=== PATIENT | female | born 1965 | race Caucasian/White ===

== ENCOUNTER 2018-10-08 07:09 | Day surgery (SDC) | payer BC ==
[2018-10-08] VITALS (24 sets, daily range): BP systolic 119–173; BP diastolic 72–93; PULSE 68–98; RESP 12–27; Ht 154.9 cm; Wt 64.9 kg
[~2018-10-08] VITALS: Ht 154.9 cm; Wt 64.9 kg
[~2018-10-08 07:09] MED LIST: ATOR10TA65 PO; CEFAZOLIN 2 GM/50 ML (PMX) 50 ML IVPB ONE; CHOL100062 PO; FOLI-49 PO; SOD CHLORIDE 0.9% 1,000 ML IV ONE; propanolol ORAL
[2018-10-08] MEDS ORDERED: DESFLURANE 15 MIN ONE (09:33)
[2018-10-08] MEDS ORDERED: ROCURONIUM 50 MG INJ ONE ×2 (09:33→10:36)
[2018-10-08] MEDS ORDERED: GLYCOPYRROLATE 0.4 MG INJ ONE ×2 (09:33→10:36)
[2018-10-08] MEDS ORDERED: MIDAZOLAM 1 MG/ML 2 ML INJ ONE (09:33)
[2018-10-08] MEDS ORDERED: NEOSTIGMINE 3 MG/3 ML SYRINGE ONE ×2 (09:33→10:36)
[2018-10-08] MEDS ORDERED: CEFAZOLIN 1 GM INJ ONE ×2 (09:33→10:36)
[2018-10-08] MEDS ORDERED: FENTAnyl 50 MCG/ML VIAL ONE (09:33)
[2018-10-08] MEDS ORDERED: PROPOFOL 0 ML ONE (09:33)
[2018-10-08] MEDS ORDERED: DEXAMETHASONE 4 MG/ML 5 ML INJ ONE (09:34)
[2018-10-08] MEDS ORDERED: ONDANSETRON 4 MG INJ ONE (09:34)
[2018-10-08] MEDS ORDERED: ROPIVACAINE 0.5 % 30 ML VIAL ONE (09:34)
[2018-10-08] MEDS ORDERED: BUPIVACAINE 0.25% (MPF) 30 ML INJ ONE (10:27)
--- NOTE | 2018-10-08 10:33 | PREAC ---
Date/Time of Note Date/Time of Note DATE: 10/08/18 TIME: 10:32 Anesthesia Eval and Record Evaluation Time Pre-Procedure Interview DATE: 10/08/18 TIME: 10:32 Age 52 Sex female NPO: 8 hrs Preoperative diagnosis symptomatic cholelithiasis Planned procedure lap laura Past Medical History Past Medical History: Includes Cardio: HTN, Dyslipidemia Surgery & Anesthesia Issues No known issue Meds Anticoagulation: No Beta Cindy within 24 hr: Yes Reported Medications Cholecalciferol* (Vitamin D3*) 1,000 Unit Tablet, 2000 UNIT PO DAILY, TAB 10/08/18 Atorvastatin Calcium (Atorvastatin Calcium) 10 Mg Tablet, 10 MG PO QHS, #30 TAB 10/08/18 [propanolol] No Conflict Check, 10 MG ORAL DAILY 10/08/18 Folic Acid* (Folic Acid*) 1 Mg Tablet, 1 MG PO DAILY, TAB 10/08/18 Current Medications Sodium Chloride 1,000 ml @ 75 mls/hr [id number] ONCE IV Last administered on 10/08/18at 08:30; Admin Dose 75 MLS/HR; Start 10/08/18 at 07:00; Stop 10/08/18 at 20:19 Meds reviewed: Yes Allergies Uncoded Allergies: Muscle Relaxers (Allergy, Severe, unable to breathe, 10/08/18) Patient/family unable to recall name of muscle relaxer. Allergies Reviewed: Yes Labs/Studies Labs Reviewed: Reviewed by anesthesiologist test: N/A Studies: ECG (WNL), CXR (NAPD) Pre-procedure Exam Last vitals Vital Signs Date Temp Pulse Resp B/P (MAP) Pulse Ox O2 O2 Flow FiO2 Time Delivery Rate 10/08/18 99.1 82 16 137/82 100 Room Air 09:18 (100) Airway: Adequate mouth opening, Adequate thyromental dist Mallampati: Mallampati II Teeth: Normal Lung: Normal Heart: Normal ASA Physical Status ASA physical status: 2 Emergency: None Planned Anesthetic General/MAC: ETT Nerve block: TAP (bilateral) Planned Pain Management Single shot nerve block, Parenteral pain med Pre-operative Attestations Prior to commencing anesthesia and surgery, the patient was re-evaluated, there was verification of: *The patient's identity *The results of appropriate recent lab work and preoperative vital signs *The above evaluation not changing prior to induction *Anesthetic plan, risk benefits, alternative and complications discussed with patient/family; questions answered; patient/family understands, accepts and wishes to proceed. Gee Schaefer M.D. Oct 08, 2018 10:33
[2018-10-08] MEDS ORDERED: PROPOFOL 20 ML ONE (10:36)
--- NOTE | 2018-10-08 10:44 | HPN ---
Date/Time of Note Date/Time of Note DATE: 10/08/18 TIME: 10:44 Interval H&P Admission Note Pt. seen H&P reviewed: No system changes FAINA BUSH MD Oct 08, 2018 10:44
[2018-10-08] MEDS ORDERED: TRIMETHOBENZAMIDE 100 MG/ML VIAL IM PRN (11:00)
[2018-10-08] MEDS ORDERED: ALBUTEROL 0.083% (NEB) 2.5 MG/3 ML AMP HHN PRN (11:00)
[2018-10-08] MEDS ORDERED: FENTAnyl 50 MCG/ML VIAL IV PRN ×3 (11:00)
[2018-10-08] MEDS ORDERED: MIDAZOLAM 1 MG/ML 2 ML INJ IV PRN (11:00)
[2018-10-08] MEDS ORDERED: LABETALOL HCL 20MG INJ IV PRN (11:00)
[2018-10-08] MEDS ORDERED: IPRATROPIUM (NEB) 0.5 MG/2.5 ML AMP HHN PRN (11:00)
[2018-10-08] MEDS ORDERED: HYDROmorphONE 1 MG/5 ML IV SYRINGE IV PRN ×3 (11:00)
[2018-10-08] MEDS ORDERED: hydrALAzine 20 MG INJ IV PRN (11:00)
[2018-10-08] MEDS ORDERED: EPHEDrine 25 MG/5 ML SYG IV PRN (11:00)
[2018-10-08] MEDS ORDERED: DIPHENHYDRAMINE 50 MG INJ IV PRN (11:00)
[2018-10-08] MEDS ORDERED: MEPERIDINE 25 MG INJ IV PRN (11:00)
[2018-10-08] MEDS ORDERED: ONDANSETRON 4 MG INJ IV PRN ×2 (11:00→12:00)
[2018-10-08] MEDS ORDERED: OXYCODONE/ACETAMINOPHEN (5/325) TAB PO PRN ×2 (11:00)
[2018-10-08] MEDS ORDERED: BUPIVACAINE 0.25% (STERILE-PAK) 30 ML INJ INJ ONE (11:55)
[2018-10-08] MEDS ORDERED: KETOROLAC 30 MG INJ IV PRN (12:00)
[2018-10-08] MEDS ORDERED: HYDROCODONE/APAP (5/325) TAB PO PRN ×2 (12:00)
[2018-10-08] MEDS ORDERED: morphine 2 MG INJ IV PRN (12:00)
[2018-10-08] MEDS ORDERED: IBUPROFEN 600 MG TAB PO PRN (12:00)
[2018-10-08] MEDS ORDERED: SUGAMMADEX SODIUM 200 MG/2 ML VIAL IV ONE (12:02)
--- NOTE | 2018-10-08 12:05 | OPR ---
Date/Time of Note Date/Time of Note DATE: 10/08/18 TIME: 12:00 Operative Report Procedure Date: Oct 08, 2018 Preoperative Diagnosis Cholelithiasis/chronic cholecystitis Postoperative Diagnosis Cholelithiasis/chronic cholecystitis Operation/Procedure Performed Laparoscopic cholecystectomy Surgeon see signature line Fire Alarm Technician None Anesthesia Type: general Anesthesiologist: Gee Schaefer M.D. Estimated Blood Loss: minimal Transfusion none Specimen Gallbladder Grafts/Implants none Complications none Pt Condition Post Procedure: stable Disposition: PACU Indications The patient is a 52-year-old female who presented to the office with complaints of intermittent right upper quadrant abdominal pain. The patient had clinical signs and symptoms of biliary colic and chronic cholecystitis which was confirmed via both an ultrasound and an MRCP that showed the presence of gall stones without any evidence of acute cholecystitis. The patient was scheduled for laparoscopic cholecystectomy; possible open as definitive treatment to prevent further sequelae of gallstone disease which include but are not limited to: Gangrenous cholecystitis, choledocholithiasis, gallstone pancreatitis, ascending cholangitis, etc. All risks and benefits of the procedure including but not limited to: Wound infection, excessive bleeding, common bile duct injury, postoperative biliary leak, retained common bile duct stone, injury to intra-abdominal organs, conversion to open procedure, possible need for subsequent surgeries, etc. were all explained to the patient in full detail. She fully understood and wished to proceed with the procedure. Informed consent was therefore obtained. Procedure Description The patient was brought to the operating room and placed supine on the operating table. Bilateral sequential compression devices were placed on both lower extremities. A dose of broad-spectrum perioperative intravenous antibiotics was given. After the induction of smooth general endotracheal anesthesia the patient 's abdomen was prepped and draped in the standard surgical fashion. A tap block was performed prior to the start of the procedure by the anesthesiologist and will be documented by him separately. After performance of the surgical timeout a 5 mm incision was made in the inferior umbilicus and a Veress needle was used to access the intra-abdominal cavity atraumatically. Pneumoperitoneum was then obtained and the Veress needle was exchanged for a 5 mm trocar through which a 5 mm laparoscope was placed. Three further working ports were then placed a 12 mm port in the sub-xiphoid region and two 5 mm ports in the right upper quadrant. A ll port sites were anesthetized with 0.25% Marcaine with epinephrine prior to incision. Diagnostic laparoscopy showed adhesions in the right lower quadrant. A distended gallbladder was identified in the right upper quadrant. Using atraumatic graspers the gallbladder was grasped and retracted superiorly and laterally exposing the area of Smith's pouch. Dissection was begun in this area using a combination of blunt dissection and hook electrocautery. The cystic duct was identified as it entered straight into the neck of the gallbladder. Cystic duct anatomy was confirmed using fluorescence imaging and indocyanine green dye. It was dissected free of surrounding tissues and clipped proximally and distally x 3 and transected using EndoShears. Dissection was then continued posteriorly. The cystic artery was identified and dissected free of surrounding tissues. It too was clipped proximally and distally x 2 and transected using EndoShears. Critical view was obtained prior to transection of both the cystic duct and artery. The gallbladder was then dissected off the liver bed using electrocautery. Once completely free the gallbladder was placed in an Endo Catch bag and withdrawn through the subxiphoid port site and passed off the field as specimen. Hemostasis was then inspected for and noted to be total. The abdomen was then irrigated with several liters of warm normal saline and the irrigant returned crystal clear. The fascia of the subxiphoid port site was then reapproximated using a sha-close device. Pneumoperitoneum was then released and all remaining trochars were withdrawn under direct vision. The subcutaneous tissues were irrigated with more warm normal saline. The skin was then reapproximated using 4-0 Monocryl sutures in subcuticular fashion. The incisions were cleaned and Dermabond was applied to the incisions and the patient was awoken from anesthesia and transported to the recovery room in stable condition. All counts were correct at the end of the case x 2. FAINA BUSH MD Oct 08, 2018 12:05
[2018-10-08] MEDS ORDERED: METOCLOPRAMIDE 10 MG INJ ONE (12:06)
--- NOTE | 2018-10-08 14:12 | PAC ---
Date/Time of Note Date/Time of Note DATE: 10/08/18 TIME: 14:12 Post-Anesthesia Notes Post-Anesthesia Note Last documented vital signs Vital Signs Date Temp Pulse Resp B/P (MAP) Pulse Ox O2 O2 Flow FiO2 Time Delivery Rate 10/08/18 76 18 125/72 96 Room Air 13:54 (89) 10/08/18 98.4 12:20 Activity: WNL Respiratory function: WNL Cardiovascular function: WNL Mental status: Baseline Pain reasonably controlled: Yes Hydration appropriate: Yes Nausea/Vomiting absent: Yes Gee Schaefer M.D. Oct 08, 2018 14:12
== END 2018-10-08 15:21 | disposition home or self-care (01) ==
LOC: SDS 07:09
PROVIDERS: ATTEND Surgery
DX: K80.10 Calculus of gallbladder with chronic cholecystitis without obstruction (principal); I10 Essential (primary) hypertension
CPT/HCPCS: 47562; 84703; 88304; J0690; J1100; J1170; J2175; J2250; J2405; J2710; J2765; J2795; J3010; Z7512; Z7610